=== PATIENT | female | born 1985 | race Caucasian/White ===

== ENCOUNTER 2017-04-27 17:50 | Emergency (ER) | payer MEDICAID ==
[~2017-04-27] VITALS: Ht 154.9 cm; Wt 77.0 kg
[2017-04-27] MEDS ORDERED: SODIUM CHLORIDE 0.9% 1,000 ML IV ONE (23:05)
[2017-04-27 23:41] LABS: CHLORIDE 106 mEq/L (98-107)
[2017-04-27 23:43] LABS: BASOPHILS % 0.2 % (0.0-2.0); EOSINOPHILS % 0.2 % (0.0-5.0); HEMATOCRIT. 37.8 % (36.0-48.0); LYMPHOCYTES % 20.8 % (20.0-50.0); MEAN CORPUSCULAR VOLUME 78.3 fL (81.0-99.0); MEAN PLATELET VOLUME 9.4 fl (7.4-10.4); MONOCYTES % 4.3 % (2.0-8.0); NEUTROPHILS % 74.5 % (40.0-76.0); PLATELET 206 x1000/uL (130-400); RED BLOOD CELL COUNT 4.82 mill/uL (4.2-5.4); RED CELL DISTRIBUTION WIDTH 21.8 % (11.6-14.6)
[2017-04-27 23:50] LABS: CARBON DIOXIDE 30 mEq/L (21-32)
[2017-04-27 23:56] LABS: PROTHROMBIN TIME 10.3 sec (9.4-11.6)
[2017-04-28 00:06] LABS: HCG SCREEN NEGATIVE
[2017-04-28 00:10] VITALS: BP 119/63
[2017-04-28 00:13] LABS: CLARITY URINE TURBID (CLEAR); COLOR URINE YELLOW (YELLOW); KETONES URINE NEGATIVE (NEGATIVE); LEUKOCYTE ESTERASE URINE 1+ (NEGATIVE); NITRITE URINE NEGATIVE (NEGATIVE); OCCULT BLOOD URINE NEGATIVE (NEGATIVE); PROTEIN URINE NEGATIVE (NEGATIVE); SPECIFIC GRAVITY URINE 1.016 (1.005-1.030)
== END 2017-04-28 01:05 | disposition home or self-care (01) ==
LOC: ER 18:56
DX: R10.13 Epigastric pain (principal); R42 Dizziness and giddiness; D64.9 Anemia, unspecified; Z88.0 Allergy status to penicillin; R11.0 Nausea
CPT/HCPCS: 36415; 80053; 81001; 83690; 84703; 85025; 85610; 93005; 99285; Z7610; 81003; J7030